=== PATIENT | female | born 1975 | race Caucasian/White ===

== ENCOUNTER 2018-10-13 22:03 | Emergency (ER) | payer SELFPAY ==
--- NOTE | 2018-10-13 22:32 | EDPHYS ---
Physician Documentation [facility] Name: Kiesha Dolan Age: 43 yrs Sex: Female : 1975 Arrival Date: 10/13/2018 Time: 22:04 Bed 19 Private MD: ED Physician Irving Chaparro HPI: 10/13 22:50 This 43 yrs old Female presents to ER via Ambulatory with complaints of pm1 Insect Bite. 22:50 The patient presents with an abscess of the right trapezius. Description: The affected pm1 area is small. Onset: The symptoms/episode began/occurred 3 day(s) ago. Possible cause(s): insect sting. Associated signs and symptoms: Pertinent positives: drainage onset today with warm compresses, Pertinent negatives: fever. Modifying factors: the symptoms are alleviated by squeezing the lesion and expressing the contents, the symptoms are aggravated by touching. Severity of symptoms: in the emergency department the symptoms have improved. The patient has not experienced similar symptoms in the past. The patient has not recently seen a physician. 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 - Social history:: Smoking status: Patient uses tobacco products, smokes one-half pack cigarettes per day, Patient uses alcohol, occasionally. Patient/guardian denies using street drugs. - Ebola Screening: : Patient negative for fever greater than or equal to 101.5 degrees Fahrenheit, and additional compatible Ebola Virus Disease symptoms Patient denies exposure to infectious person Patient denies travel to an Ebola-affected area in the 21 days before illness onset. ROS: 22:50 Constitutional: Negative for fever, chills, and weight loss, Eyes: Negative for injury, pm1 pain, redness, and discharge, ENT: Negative for injury, pain, and discharge, Neck: Negative for injury, pain, and swelling, Cardiovascular: Negative for chest pain, palpitations, and edema, Respiratory: Negative for shortness of breath, cough, wheezing, and pleuritic chest pain, Abdomen/GI: Negative for abdominal pain, nausea, vomiting, diarrhea, and constipation, Back: Negative for injury and pain, MS/Extremity: Negative for injury and deformity. 22:50 Skin: Positive for abscess, of the right trapezius, Negative for cellulitis. Exam: 22:50 Constitutional: This is a well developed, well nourished patient who is awake, alert, pm1 and in no acute distress. Head/Face: Normocephalic, atraumatic. Neck: Trachea midline, no thyromegaly or masses palpated, and no cervical lymphadenopathy. Supple, full range of motion without nuchal rigidity, or vertebral point tenderness. No Meningismus. Chest/axilla: Normal chest wall appearance and motion. Nontender with no deformity. No lesions are appreciated. Cardiovascular: Regular rate and rhythm with a normal S1 and S2. No gallops, murmurs, or rubs. Normal PMI, no JVD. No pulse deficits. Respiratory: Lungs have equal breath sounds bilaterally, clear to auscultation and percussion. No rales, rhonchi or wheezes noted. No increased work of breathing, no retractions or nasal flaring. Abdomen/GI: Soft, non-tender, with normal bowel sounds. No distension or tympany. No guarding or rebound. No evidence of tenderness throughout. Back: No spinal tenderness. No costovertebral tenderness. Full range of motion. 22:50 Skin: Appearance: normal except for affected area, abscess, that is small, approximately 1 cm(s), of the right trapezius, no surrounding cellulitis. Small amount of loculation removed with 18 gauge needle through patient created opening of abscess. Vital Signs: 22:05 BP 164 / 100; Pulse 98; Resp 18; Temp 99.0(O); Pulse Ox 100% on R/A; Weight 99.79 kg fc (R); Height 5 ft. 8 in. (172.72 cm) (R); Pain 5/10; 22:54 BP 155 / 86; Pulse 85; Resp 18; Temp 99.0(O); Pulse Ox 99% on R/A; Pain 5/10; fc 22:05 Body Mass Index 33.45 (99.79 kg, 172.72 cm) fc MDM: 22:30 Patient medically screened. pm1 22:30 Data reviewed: vital signs. Data interpreted: Pulse oximetry: on room air is 100 %. pm1 Interpretation: normal. Counseling: I had a detailed discussion with the patient and/or guardian regarding: the historical points, exam findings, and any diagnostic results supporting the discharge/admit diagnosis, the need for outpatient follow up, to return to the emergency department if symptoms worsen or persist or if there are any questions or concerns that arise at home. Administered Medications: 22:34 Drug: Doxycycline 100 mg Route: PO; 22:56 Follow up: Response: No adverse reaction; No change in condition fc Disposition: 10/13/18 22:31 Discharged to Home. Impression: Cutaneous abscess of back [any part, except buttock]. - Condition is Stable. - Discharge Instructions: Skin Abscess, Incision and Drainage, Care After. - Prescriptions for Doxycycline Hyclate 100 mg Oral Tablet - take 1 tablet by ORAL route every 12 hours; 20 tablet. - Medication Reconciliation Form, Thank You Letter, Antibiotic Education, Prescription Opioid Use form. - Follow up: Emergency Department; When: As needed; Reason: Worsening of condition. Follow up: Private Physician; When: 2 - 3 days; Reason: Recheck today's complaints, Continuance of care, Re-evaluation by your physician. - Problem is new. - Symptoms have improved. Addendum: 10/16/2018 13:58 Co-signature as Attending Physician, Irving Chaparro MD Available for consultation at p s1 all times . Signatures: Nae Rasheed RN RN Eugene Stringer, TRAILHEAD CONSTRUCTION WORKER TRAILHEAD CONSTRUCTION WORKER pm1 Irving Chaparro MD MD ps1 Corrections: (The following items were deleted from the chart) 10/13 22:56 22:31 10/13/2018 22:31 Discharged to Home. Impression: Cutaneous abscess of back [any fc part, except buttock]. Condition is Stable. Forms are Medication Reconciliation Form, Thank You Letter, Antibiotic Education, Prescription Opioid Use. Follow up: Emergency Department; When: As needed; Reason: Worsening of condition. Follow up: Private Physician; When: 2 - 3 days; Reason: Recheck today's complaints, Continuance of care, Re-evaluation by your physician. Problem is new. Symptoms have improved. pm1
--- NOTE | 2018-10-13 22:32 | ER ---
Nurse's Notes [facility] Name: Kiesha Doaln Age: 43 yrs Sex: Female : 1975 Arrival Date: 10/13/2018 Time: 22:04 Bed 19 Private MD: Diagnosis: Cutaneous abscess of back [any part, except buttock] Presentation: 10/13 22:05 Presenting complaint: Patient states: that she got an insect bite to right upper back 3 fc days ago and it has grown. Opened it up yesterday and it had yellow drainage come out of it. Concerned because she is having increased tenderness now up to her neck. Transition of care: patient was not received from another setting of care. Onset of symptoms was October 10, 2018. Risk Assessment: Do you want to hurt yourself or someone else? Patient reports no desire to harm self or others. Initial Sepsis Screen: Does the patient meet any 2 criteria? HR > 90 bpm. Yes Does the patient have a suspected source of infection? No. Patient's initial sepsis screen is negative. Care prior to arrival: None. 22:05 Method Of Arrival: Ambulatory fc 22:05 Acuity: FATMATA 4 fc Triage Assessment: 22:05 Bite description: bite sustained to right trapezius is infected, from insect was fc sustained 3 days by an unknown animal, animal information: vaccination(s) is not applicable. General: Appears uncomfortable, obese, Behavior is calm, cooperative, appropriate for age. Pain: Complains of pain in right trapezius Pain currently is 5 out of 10 on a pain scale. Quality of pain is described as aching, dull, throbbing, Pain began 2-3 days ago. Is continuous, Aggravated by increased activity, repositioning. EENT: No deficits noted. Neuro: Level of Consciousness is awake, alert, obeys commands, Oriented to person, place, time, situation, Appropriate for age. Cardiovascular: No deficits noted. Respiratory: No deficits noted. GI: No deficits noted. : No deficits noted. Derm: Skin is pink, warm \T\ dry. Abscess located on right trapezius is dime sized, has purulent drainage, is hot to touch, is red, is raised, was lanced by patient prior to arrival, Reports pain. Musculoskeletal: Circulation, motion, and sensation intact. Capillary refill < 3 seconds, Range of motion: intact in all extremities. 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 - Social history:: Smoking status: Patient uses tobacco products, smokes one-half pack cigarettes per day, Patient uses alcohol, occasionally. Patient/guardian denies using street drugs. - Ebola Screening: : Patient negative for fever greater than or equal to 101.5 degrees Fahrenheit, and additional compatible Ebola Virus Disease symptoms Patient denies exposure to infectious person Patient denies travel to an Ebola-affected area in the 21 days before illness onset. Screenin:05 Abuse screen: Denies threats or abuse. Nutritional screening: No deficits noted. fc Tuberculosis screening: No symptoms or risk factors identified. Fall Risk None identified. Assessment: 22:20 Reassessment: No changes from previously documented assessment. Patient and/or family fc updated on plan of care and expected duration. Pain level reassessed. Patient is alert, oriented x 3, equal unlabored respirations, skin warm/dry/pink. see triage assessment. 22:25 Reassessment: Eugene KAYE in to see pt and cleaned area with Betadine then removed core fc to abscess. 22:56 Derm: Skin abscess to right upper back. fc Vital Signs: 22:05 BP 164 / 100; Pulse 98; Resp 18; Temp 99.0(O); Pulse Ox 100% on R/A; Weight 99.79 kg fc (R); Height 5 ft. 8 in. (172.72 cm) (R); Pain 5/10; 22:54 BP 155 / 86; Pulse 85; Resp 18; Temp 99.0(O); Pulse Ox 99% on R/A; Pain 5/10; fc 22:05 Body Mass Index 33.45 (99.79 kg, 172.72 cm) ED Course: 22:04 Patient arrived in ED. as 22:05 Arm band placed on Patient placed in an exam room, on a stretcher. fc 22:05 Patient has correct armband on for positive identification. Placed in gown. Bed in low fc position. Call light in reach. Pulse ox on. NIBP on. 22:13 Eugene Stringer NP is [facility]. pm1 22:13 Irving Chaparro MD is Attending Physician. pm1 22:16 Triage completed. fc 22:34 No provider procedures requiring assistance completed. Patient did not have IV access fc during this emergency room visit. 22:35 Wound care: to abscess located on right trapezius was dressed with 4X4s, band aid, fc Patient tolerated well. Administered Medications: 22:34 Drug: Doxycycline 100 mg Route: PO; fc 22:56 Follow up: Response: No adverse reaction; No change in condition fc Outcome: 22:31 Discharge ordered by MD. pm1 22:54 Discharged to home ambulatory. fc 22:54 Condition: good 22:54 Discharge instructions given to patient, Instructed on discharge instructions, follow up and referral plans. no drinking with medication, medication usage, wound care, Demonstrated understanding of instructions, follow-up care, medications, wound care, Prescriptions given X 1. 22:56 Patient left the ED. fc Signatures: Nae Rasheed RN RN Lidia Chapa as Eugene Stringer NP MANAGER RAIL pm1
[2018-10-13] MEDS ORDERED: DOXYCYCLINE 100 MG CAP PO ONE (22:46)
[2018-10-14 00:58] VITALS: BP 155/86; TEMP 99; O2SAT 99
== END 2018-10-13 22:56 | disposition home or self-care (01) ==
LOC: ER 22:03
DX: L02.212 Cutaneous abscess of back [any part, except buttock and flank] (principal); F17.210 Nicotine dependence, cigarettes, uncomplicated; Z88.2 Allergy status to sulfonamides
CPT/HCPCS: 99284